=== PATIENT | male | born 1990 | race Caucasian/White ===

== ENCOUNTER 2019-07-12 11:16 | Emergency (ER) | payer SELFPAY ==
[2019-07-12] VITALS (9 sets, daily range): BP systolic 103–153; BP diastolic 51–89; PULSE 43–65; RESP 14–20; TEMP 36.6; O2SAT 99–100; BMI 23.6
--- NOTE | 2019-07-12 11:20 | ED_ITS ---
Entered by Carmen Mcfarlane, acting as scribe for HPI - Abdominal Pain General: Chief Complaint: Abdominal Pain Stated Complaint: ABD PAIN Time Seen by Provider: 07/12/19 11:18 Source: patient Mode of arrival: EMS Limitations: no limitations History of Present Illness: HPI narrative: 28 yo m came to the er by [facility] for abd pain. Onset was today. Pt was sent by the [facility], pt was having some upper gastric pain. Pt states that his pain came on all of a sudden and had been vomiting this morning as well. Pt states that he is usually pain tollerent but this is the worst pain that he has ever had. MD elicited complaint: abdominal pain Pertinent past history: none Onset (ago): day(s) (today) Pain Consistency: constant Location: Epigastric Severity: moderate Quality: sharp Radiation: none Migration to: no migration Exacerbating factors: nothing Relieving factors: nothing Associated Symptoms: Reports vomiting; Denies bloating, chills, coffee ground emesis, dysuria, excessive flatus, fever(s), heartburn, hematemesis and melena Review of Systems General: Reports: other (negative unless marked) Const: Denies: fever, chills, body aches, change in appetite, fatigue or malaise ENMT: Denies: throat pain, ear pain, nasal discharge or nasal congestion Card: Denies: chest pain, edema, shortness of breath on exertion or shortness of breath when lying down Resp: Denies: shortness of breath, productive cough or non-productive cough GI: Reports: vomiting; Denies: vomiting blood, coffee grounds in vomit, difficulty swallowing, heartburn/indigestion, bloating, excessive passing of gas or black tarry stool : Denies: flank pain, painful urination, urinary frequency or urinary urgency Skin/Breast: Denies: rash or itching PFSH ED PFSH: Social History (Updated 07/12/19 @ 12:36 by Candie Lenz LPN) Smoking and tobacco status: never smoked Alcohol intake: never Adopted: No Caregiver/support person: No Lives independently: Yes Housing: House Marital status: Single Number of children: 0 Highest education level completed: High School Graduate service: No Current occupational status: employed Current occupation: [employer] Current occupational exposures/hazards: No Pets and animals: Yes History of recent travel: No Current gender identity: Male Physical Exam Const: COMMON NORMALS: average body habitus, oriented x3 and alert GENERAL APPEARANCE: cooperative, comfortable, well kempt and well developed NUTRITION AL APPEARANCE: obese ORIENTATION/CONSCIOUSNESS: Yes awake, Yes oriented to person and Yes oriented to place HENMT: COMMON NORMALS: normocephalic, head/scalp atraumatic, EAC's normal, TM's normal bilaterally, external nose normal, moist oral mucous membranes and oropharynx normal HEAD & SCALP: normocephalic and atraumatic NOSE: external nose normal EXTERNAL AUDITORY CANAL: EAC's normal TYMPANIC MEMBRANE: TM's normal bilaterally MOUTH: oral and palatal mucosa normal, lip normal and tongue normal THROAT: posterior oropharynx normal and tonsils normal Eye: COMMON NORMALS: PERRL, EOMs intact bilaterally, conjunctivae normal and no scleral icterus CONJUNCTIVA: Yes conjunctivae normal PUPIL: Yes PERRL Neck/C-Spine: COMMON NORMALS: full ROM, no lymphadenopathy, supple, no meningeal signs and thyroid normal THYROID: thyroid normal and asymmetrical Lymph: LYMPHATIC: no lymphadenopathy noted Resp: COMMON NORMALS: normal respiratory effort, no retractions, no use of accessory muscles and clear to auscultation bilaterally AUSCULTATION: clear to auscultation bilaterally Cardio: COMMON NORMALS: regular rate and regular rhythm RATE: regular rate RHYTHM: regular rhythm HEART SOUNDS: no murmurs GI: COMMON NORMALS: soft to palpation and no hepatosplenomegaly PALPATION: Yes soft, Yes tender (And epigastric) Details: LUQ and Yes no hepatosplenomegaly : COMMON NORMALS: Yes no CVA tenderness BLADDER/KIDNEY EXAM: Yes no CVA tenderness Back/Pelvis: COMMON NORMALS: no CVA tenderness LUMBAR SPINE/LOWER BACK: Yes normal to inspection Extremity: COMMON NORMALS: no clubbing, cyanosis or edema, no calf tenderness and no pedal edema Neuro: COMMON NORMALS: oriented x3 SENSORIUM/ORIENTATION: Yes alert, Yes oriented to person and Yes oriented to place MENINGEAL SIGNS: Yes no meningeal signs Psych: APPEARANCE: Yes well kempt Skin: COMMON NORMALS: no rashes or lesions noted and skin turgor normal GENERAL SKIN EXAM: no rashes or lesions noted and turgor normal Course ED course: On initial CT abdomen pelvis with IV contrast there is quite a bit of fluid in the abdominal cavity free fluid. Discussed Dr. English she was quite concerned with this with the sudden onset of symptoms she recommended a repeat CT with oral contrast. I discussed this with Dr. Gann he concurred. I did take some time to get the contrast of following through were able to get a good CT that highlighted his appendix there is no evidence of perforated viscus his appendix looks normal. In the initial CT because of his extremely low body fat we cannot really identify the appendix well enough to be certain it was not an issue. When we were able to finally get the scans done reviewed with patient on the second scan he has no further fluid in the abdominal or pelvis. And his pain is completely resolved. Reviewed all the findings with him. Working to go ahead and discharge him home on a PPI and have him follow-up with his primary care doctor. He should return immediately if it worsens may need to have further work-up including potential EGD. Patient is feeling fine at this time is anxious to go home advised liquid diet advance as tolerated. Vital Signs: Vital signs: Vital Signs Temperature 97.8 F 07/12/19 11:18 Pulse Rate 65 07/12/19 16:54 Respiratory Rate 18 07/12/19 16:54 Blood Pressure 119/72 07/12/19 16:54 Pulse Oximetry 99 07/12/19 16:54 MDM - Abdominal Pain Lab Data: Labs: Lab Results 07/12/19 07/12/19 07/12/19 Range/Units 11:34 11:34 11:34 WBC 7.3 (4.0-10.0) 10^3/ uL RBC 4.83 (4.1-5.3) 10^6/u L Hgb 14.4 (11.7-16.6) g/dL Hct 40.9 L (42.0-52.0) % MCV 84.7 (80-94) fL MCH 29.8 (28.0-34.0) pg MCHC 35.2 (30.0-36.0) g/dL RDW 11.9 L (12.1-15.1) % Plt Count 201 (130-400) 10^3/c mm MPV 9.8 (7.4-10.4) fL Neut % (Auto) 72.5 % Lymph % (Auto) 18.8 % [place] % (Auto) 6.6 % Eos % (Auto) 1.4 % Baso % (Auto) 0.3 % Neut # (Auto) 5.3 (1.8-7.7) 10^3/u L Lymph # (Auto) 1.4 (0.8-4.8) 10^3/u L [place] # (Auto) 0.5 (0.2-0.9) 10^3/u L Eos # (Auto) 0.1 (0.0-0.8) 10^3/u L Baso # (Auto) 0.0 (0.0-0.1) 10^3/u L Nucleated RBC % (a uto) 0 % Nucleated RBCs # 0.0 /100WBC Sodium 134 L (136-145) mmol/L Potassium 4.1 (3.5-5.1) mmol/L Chloride 98 (98-107) mmol/L Carbon Dioxide 22 (22-29) mmol/L Anion Gap 18.1 (5-19) BUN 16 (6-20) mg/dL Creatinine 0.9 (0.7-1.2) mg/dL GFR Calculation 102.0 (90-130) mL/min Glucose 125 H (65-115) mg/dL Lactate 1.9 (0.5-2.2) mmol/L Calcium 9.7 (8.5-10.5) mg/dL Total Bilirubin 0.4 (0.15-1.2) mg/dL AST 28 (0-40) U/L ALT 20 (0-41) U/L Alkaline Phosphata se 53 (40-130) IU/L Total Protein 7.2 (6.6-8.7) g/dL Albumin 4.7 (3.5-5.2) g/dL Globulin 2.5 (1.3-4.6) g/dL Lipase 14 (13-60) U/L Urine Color (Yellow) Urine Appearance (CLEAR) Urine pH (5-7) Ur Specific Gravit y (1.005-1.030) Urine Protein (Negative) Urine Glucose (UA) (Normal) Urine Ketones (Negative) Urine Blood (Negative) Urine Nitrate (Negative) Urine Bilirubin (NEGATIVE) Prot Sulfosalicyli c Acd Urine Urobilinogen (Negative) mg/dL Ur Leukocyte Marcelle ase (Negative) Urine RBC (0-2) /hpf Urine WBC (0-5) /hpf Ur Squamous Epith Cells (0-5) Amorphous Sediment Urine Bacteria (NONE) 07/12/19 Range/Units 11:51 WBC (4.0-10.0) 10^3/ uL RBC (4.1-5.3) 10^6/u L Hgb (11.7-16.6) g/dL Hct (42.0-52.0) % MCV (80-94) fL MCH (28.0-34.0) pg MCHC (30.0-36.0) g/dL RDW (12.1-15.1) % Plt Count (130-400) 10^3/c mm MPV (7.4-10.4) fL Neut % (Auto) % Lymph % (Auto) % [place] % (Auto) % Eos % (Auto) % Baso % (Auto) % Neut # (Auto) (1.8-7.7) 10^3/u L Lymph # (Auto) (0.8-4.8) 10^3/u L [place] # (Auto) (0.2-0.9) 10^3/u L Eos # (Auto) (0.0-0.8) 10^3/u L Baso # (Auto) (0.0-0.1) 10^3/u L Nucleated RBC % (a uto) % Nucleated RBCs # /100WBC Sodium (136-145) mmol/L Potassium (3.5-5.1) mmol/L Chloride (98-107) mmol/L Carbon Dioxide (22-29) mmol/L Anion Gap (5-19) BUN (6-20) mg/dL Creatinine (0.7-1.2) mg/dL GFR Calculation (90-130) mL/min Glucose (65-115) mg/dL Lactate (0.5-2.2) mmol/L Calcium (8.5-10.5) mg/dL Total Bilirubin (0.15-1.2) mg/dL AST (0-40) U/L ALT (0-41) U/L Alkaline Phosphata se (40-130) IU/L Total Protein (6.6-8.7) g/dL Albumin (3.5-5.2) g/dL Globulin (1.3-4.6) g/dL Lipase (13-60) U/L Urine Color Yellow (Yellow) Urine Appearance Cloudy (CLEAR) Urine pH 8 H (5-7) Ur Specific Gravit y 1.010 (1.005-1.030) Urine Protein Neg (Negative) Urine Glucose (UA) Norm (Normal) Urine Ketones 1+ H (Negative) Urine Blood Neg (Negative) Urine Nitrate Negative (Negative) Urine Bilirubin Neg (NEGATIVE) Prot Sulfosalicyli c Acd Negative Urine Urobilinogen Norm (Negative) mg/dL Ur Leukocyte Marcelle ase Negative (Negative) Urine RBC None (0-2) /hpf Urine WBC None (0-5) /hpf Ur Squamous Epith Cells 0-4 H (0-5) Amorphous Sediment 4+ Urine Bacteria 2+ H (NONE) Imaging Data ^: CT Abd/Pel: Radiologist's impression: [place] [address] CT Scan Report Signed Patient: Javier Ramos #: [id number] : 1990Acct#:[id number] Age/Sex: MADM Date: 07/12/19 Loc: ERRoom/Bed: Attending Dr: Ordering Provider/Ordering MD: Bonilla Monet DO Date of Service: 07/12/19 Procedure(s): CT abdomen pelvis w con* [id number] Accession Number(s): [id number] Report Number: [id number] WS: [id number] CT ABDOMEN AND PELVIS WITH CONTRAST HISTORY: Mid abdominal pain. TECHNIQUE: Imaging performed of the abdomen and pelvis with IV contrast. Single phase imaging of the abdomen. Coronal and sagittal reformats are submitted. All CT scans at [facility] use at least one of these dose optimization techniques: automated exposure control; mA and/or kV adjustment per patient size (includes targeted exams where dose is matched to clinical indication); or iterative reconstruction. IV CONTRAST: Omnipaque 300; 95 mL IV. Oral contrast: No DLP: 556.33 mGy.cm COMPARISON: 12/15/2009 Lower thorax: Lung bases are clear. Heart is normal size. No hiatal hernia. Liver/biliary system: Normal size with no intrahepatic dilatation. Mild increased lucency around the portal veins. Probably due to aggressive hydration. Gallbladder: Normal. No gallstones or wall thickening. No pericholecystic fluid. Pancreas: Normal. Spleen: Normal. Adrenal glands: Normal. Right kidney: Normal. Left kidney: Normal. Aorta: Normal. Lymphadenopathy: None. Free fluid: There is a small amount of free fluid in the pelvis which is abnormal. GI tract: Large amount of fecal material deep within the pelvis and throughout the colon. The appendix is not identified. Abdominal wall: Unremarkable abdominal wall. No hernia. Pelvis: Normal. Bones: Unremarkable. Notified Bonilla Monet DO at 07/12/2019 12:[address]/CT abdomen pelvis w con* [id number] IMPRESSION: 1. Small amount of free fluid in the pelvis is considered abnormal in a male patient. 2. The appendix is not identified. 3. Constipation. Dictated By:Caro English DO Signed By:Caro English DOSigned Date/Time:07/12/19 1234 DD/ 1225 Discharge Plan Discharge Patient Disposition: Home, Self-Care Clinical Impression: Gastroenteritis Condition: Stable Prescriptions: New Protonix 40 mg tablet,delayed release (DR/EC) 40 mg PO DAILY Qty: 30 RF: 0 Discharge Orders: Discharge Order (Routine); Ordered 07/12/19 Ordered By: Bonilla Monet Referrals: [facility] [Other] Eric Alexandra, [employer] [Primary Care Provider] - Discharge Diet: Advance as tolerated and Clear Liquid Discharge Activity: Increase activity as tolerated Activity Restrictions/Additional Instructions: Follow-up with your primary care doctor. Return to the emergency room if wor sens. Discharge Date/Time: 07/12/19 16:54 Coding Level of Care Code ED Form Setter for Chg Fwd Exam Comprehensive The documentation recorded by the Denys bruno Stephanie Lyn, accurately reflects the service I personally performed and the decisions made by Chiki marks Curtis L, DO Jul 12, 2019 11:16
--- NOTE | 2019-07-12 11:25 | CT_ITS ---
WS: [id number] CT ABDOMEN AND PELVIS WITH CONTRAST HISTORY: Mid abdominal pain. TECHNIQUE: Imaging performed of the abdomen and pelvis with IV contrast. Single phase imaging of the abdomen. Coronal and sagittal reformats are submitted. All CT scans at [facility] use at least one of these dose optimization techniques: automated exposure control; mA and/or kV adjustment per patient size (includes targeted exams where dose is matched to clinical indication); or iterativ e reconstruction. IV CONTRAST: Omnipaque 300; 95 mL IV. Oral contrast: No DLP: 556.33 mGy.cm COMPARISON: 12/15/2009 Lower thorax: Lung bases are clear. Heart is normal size. No hiatal hernia. Liver/biliary system: Normal size with no intrahepatic dilatation. Mild increased lucency around the portal veins. Probably due to aggressive hydration. Gallbladder: Normal. No gallstones or wall thickening. No pericholecystic fluid. Pancreas: Normal. Spleen: Normal. Adrenal glands: Normal. Right kidney: Normal. Left kidney: Normal. Aorta: Normal. Lymphadenopathy: None. Free fluid: There is a small amount of free fluid in the pelvis which is abnormal. GI tract: Large amount of fecal material deep within the pelvis and throughout the colon. The appendi x is not identified. Abdominal wall: Unremarkable abdominal wall. No hernia. Pelvis: Normal. Bones: Unremarkable. Notified Bonilla Monet DO at 07/12/2019 12:[address]/CT abdomen pelvis w con* [id number] IMPRESSION: 1. Small amount of free fluid in the pelvis is considered abnormal in a male p atient. 2. The appendix is not identified. 3. Constipation.
[2019-07-12 11:41] LABS: Basophils % 0.3 %; Eosinophils # 0.1 10^3/uL (0.0-0.8); Eosinophils % 1.4 %; Hematocrit 40.9 % (42.0-52.0); Hemoglobin 14.4 g/dL (11.7-16.6); Lymphocytes # 1.4 10^3/uL (0.8-4.8); Lymphocytes % 18.8 %; Mean Corpuscular HGB Conc 35.2 g/dL (30.0-36.0); Mean Corpuscular Hemoglobin 29.8 pg (28.0-34.0); Mean Corpuscular Volume 84.7 fL (80-94); Mean Platelet Volume 9.8 fL (7.4-10.4); Monocytes # 0.5 10^3/uL (0.2-0.9); Monocytes % 6.6 %; Neutrophils # 5.3 10^3/uL (1.8-7.7); Neutrophils % 72.5 %; Nucleated Red Blood Cells % 0 %; Platelet Count 201 10^3/cmm (130-400); Red Blood Count 4.83 10^6/uL (4.1-5.3); Red Cell Distribution Width 11.9 % (12.1-15.1); White Blood Count 7.3 10^3/uL (4.0-10.0)
[2019-07-12] MEDS: sodium chloride 0.9% 1,000 ML 999 ML IV (11:50)
[2019-07-12] MEDS: ondansetron 2 mg/ML SDV 2 mL 4 MG IVP (11:50)
[2019-07-12] MEDS: morphine 4 mg/mL SDV 1 mL IVP (11:50)
[2019-07-12 11:55] LABS: Alanine Aminotransferase 20 U/L (0-41); Albumin Level 4.7 g/dL (3.5-5.2); Alkaline Phosphatase 53 IU/L (40-130); Anion Gap 18.1 (5-19); Aspartate Amino Transferase 28 U/L (0-40); Blood Urea Nitrogen 16 mg/dL (6-20); Calcium 9.7 mg/dL (8.5-10.5); Carbon Dioxide 22 mmol/L (22-29); Chloride 98 mmol/L (98-107); Globulin 2.5 g/dL (1.3-4.6); Glucose 125 mg/dL (65-115); Lipase 14 U/L (13-60); Potassium 4.1 mmol/L (3.5-5.1); Sodium 134 mmol/L (136-145); Total Bilirubin 0.4 mg/dL (0.15-1.2); Total Protein 7.2 g/dL (6.6-8.7)
[2019-07-12 12:01] LABS: Urine Color Yellow (Yellow)
[2019-07-12 12:02] LABS: Add Urine Microscopic? YES; Bilirubin Urine Neg (NEGATIVE); Blood Urine Neg (Negative); Glucose Urine UA Norm (Normal); Ketones Urine 1+ (Negative); Leukocyte Esterase Urine Negative (Negative); Nitrate Urine Negative (Negative); Protein Urine Neg (Negative); Sulfosalicylic Acid Urine Negative; Urine Appearance Cloudy (CLEAR); Urobilinogen Urine Norm (Negative); pH Urine 8 (5-7)
[2019-07-12] MEDS: iohexol 300 mg/mL 100 mL Btl IV (12:21)
[2019-07-12 12:26] LABS: Add Urine Culture? No; Amorphous Sediment Urine 4+; Bacteria Urine 2+; Squamous Epithelial Cell Urine 0-4 (0-5)
[2019-07-12] MEDS: sodium chlor 0.9% + KCl 20 mEq 20 MEQ/1,000 ML BAG 125 MEQ IV (12:51)
[2019-07-12 13:02] LABS: Lactate (Lactic Acid level) 1.9 mmol/L (0.5-2.2)
--- NOTE | 2019-07-12 13:03 | CT_ITS ---
WS: [id number] CT ABDOMEN AND PELVIS NONCONTRAST HISTORY: abd pain, evaluate appendix. TECHNIQUE: Imaging performed through the abdomen and pelvis. Coronal and sagittal reformats are submi tted. All CT scans at [facility] use at least one of these dose optimization techniques: automated exposure control; mA and/or kV adjustment per patient size (includes targeted exams where d ose is matched to clinical indication); or iterative reconstruction. DLP: 582.18 mGy.cm COMPARISON: Study earlier the same day. Additional imaging after oral contrast has been obtained. The appendix is visualized and normal. Ther e are no inflammatory changes in the RIGHT lower quadrant. There is mild constipation. Kidneys are ex creting urine normally and the bladder is well distended. The amount of free fluid has decreased. No significant free fluid is identified on the 4:33 PM study. Small amount was noted on 3:[address]/CT abdomen pelvis wo con [id number] IMPRESSION: Normal appendix. No acute inflammatory changes.
[2019-07-12] MEDS: iohexol 300 mg/mL 50 mL Btl PO (13:46)
--- NOTE | 2019-07-12 15:18 | PC.NURSE ---
Pt to CT
--- NOTE | 2019-07-12 15:29 | PC.NURSE ---
Pt returned from CT
--- NOTE | 2019-07-12 16:16 | PC.NURSE ---
Pt back to CT
== END 2019-07-12 16:54 | disposition home or self-care (01) ==
PROVIDERS: Emergency Provider Family Medicine; PCP Nurse Practitioner
DX: K52.9 Noninfective gastroenteritis and colitis, unspecified (principal); E66.9 Obesity, unspecified; Z68.23 Body mass index [BMI] 23.0-23.9, adult
CPT/HCPCS: 36415; 74176; 74177; 80053; 81001; 83605; 83690; 85025; 96360; 96365; 96366; 96375; 99283; 99284; J2270; J2405; J7030; Q9967